=== PATIENT | male | born 1955 | race Caucasian/White ===

== ENCOUNTER → 2023-11-06 17:05 | Outpatient (REF) | payer MEDICARE, SELFPAY | LOC: PAVMRI 17:05 | PROVIDERS: ATTENDING PHYSICIAN Physician Assistant Medical | DX: M54.2 Cervicalgia (principal); M47.12 Other spondylosis with myelopathy, cervical region; M48.02 Spinal stenosis, cervical region; Z98.1 Arthrodesis status; M48.062 Spinal stenosis, lumbar region with neurogenic claudication; M54.16 Radiculopathy, lumbar region | CPT/HCPCS: 72141; 72148 ==

== ENCOUNTER → 2025-05-10 11:21 | Outpatient (REF) | payer MEDICARE, SELFPAY | LOC: MRI 3T 11:21 | PROVIDERS: ATTENDING PHYSICIAN Physician Assistant Surgical; FAMILY PHYSICIAN Physician Assistant | DX: M54.12 Radiculopathy, cervical region (principal); M54.2 Cervicalgia; R20.2 Paresthesia of skin; Z98.1 Arthrodesis status | CPT/HCPCS: 72141 ==